=== PATIENT | female | born 1985 ===

== ENCOUNTER 2018-11-20 08:51 | Emergency (ER) | payer OTHER ==
[2018-11-20 08:58] VITALS: BP 125/84; PULSE 84; RESP 18; TEMP 98.3; O2SAT 99
--- NOTE | 2018-11-20 09:22 | C.PDOC ---
History Of Present Illness 33 y/o female presents to the ER complaining of runny nose, non-productive cough, and itchy throat which have been present for the past 3-4 days.Patient states that she tried OTC cough medications without relief. Patient reports that she has history of seasonal allergies. Denies having fever,chills, ear pain, CP, and SOB. Time Seen by Provider: 11/20/18 09:06 Chief Complaint (Nursing): Cough, Cold, Congestion History Per: Patient History/Exam Limitations: no limitations Onset/Duration Of Symptoms: Days Current Symptoms Are (Timing): Still Present Severity: Moderate Past Medical History Reviewed: Historical Data, Nursing Documentation, Vital Signs Vital Signs: Last Vital Signs Temp 98.3 F 11/20/18 08:54 Pulse 84 11/20/18 08:54 Resp 18 11/20/18 08:54 BP 125/84 11/20/18 08:54 Pulse Ox 99 11/20/18 08:54 - Medical History PMH: No Chronic Diseases - Social History Hx Alcohol Use: Yes Hx Substance Use: No - Immunization History Hx Tetanus Toxoid Vaccination: No Hx Influenza Vaccination: No Hx Pneumococcal Vaccination: No Review Of Systems Except As Marked, All Systems Reviewed And Found Negative. Constitutional: Negative for: Fever, Chills ENT: Positive for: Nose Discharge (runny nose), Other (itchy throat). Negative for: Ear Pain Cardiovascular: Negative for: Chest Pain Respiratory: Positive for: Cough (non-productive cough). Negative for: Shortness of Breath Physical Exam - Physical Exam Appears: Other (speaking in full sentences, coughing occasionally) Skin: Normal Color, Warm, Dry Head: Atraumatic, Normacephalic Eye(s): bilateral: Normal Inspection Ear(s): Bilateral: Normal Nose: Other (rhinorrhea) Oral Mucosa: Moist Throat: Normal, No Erythema, No Exudate Neck: Supple Chest: Symmetrical Cardiovascular: Rhythm Regular Respiratory: Normal Breath Sounds, No Rales, No Rhonchi, No Wheezing Neurological/Psych: Oriented x3, Normal Speech ED Course And Treatment O2 Sat by Pulse Oximetry: 99 (RA) Pulse Ox Interpretation: Normal Progress Note: Patient treated with Claritin PO. On re-evaluation, patient feels better. Patient has been discharged with prescriptions for Claritin and Nasonex. She has been instructed to follow up with PMD in 1-2 days. Disposition Counseled Patient/Family Regarding: Diagnosis, Need For Followup - Disposition Referrals: [facility] [Outside] Disposition: HOME/ ROUTINE Disposition Time: 09:30 Condition: STABLE Additional Instructions: FOLLOW UP WITH YOUR DOCTOR IN 1-2 DAYS USE MEDICATIONS DURING SPRING TIME RETURN TO ER IF SYMPTOMS WORSEN Prescriptions: Loratadine [Claritin] 10 mg PO DAILY PRN #30 tab PRN Reason: Itching / Pruritus Mometasone Furoate [Nasonex] 0.05 mg NS DAILY #1 bottle Instructions: Seasonal Allergies (DC) Forms: [employer] (Yemeni) Print Language: BULGARIAN - Clinical Impression Clinical Impression: Seasonal allergies - Scribe Statement The provider has reviewed the documentation as recorded by the Marilyn Good Provider Attestation: All medical record entries made by the Marilyn were at my direction and personally dictated by me. I have reviewed the chart and agree that the record accurately reflects my personal performance of the history, physical exam, medical decision making, and the department course for this patient. I have also personally directed, reviewed, and agree with the discharge instructions and disposition.
== END 2018-11-20 09:29 | disposition home or self-care (01) ==
LOC: C.ER 08:51
DX: J30.2 Other seasonal allergic rhinitis (principal)

== ENCOUNTER 2018-11-22 08:18 | Outpatient (CLI) | payer OTHER | END 2018-11-22 08:19 | disposition home or self-care (01) | LOC: C.LAB 08:18 | DX: E66.9 Obesity, unspecified (principal) ==

== ENCOUNTER 2018-12-08 10:47 | Outpatient (CLI) | payer OTHER | END 2018-12-08 10:48 | disposition home or self-care (01) | LOC: C.DIABED 10:47 ==

== ENCOUNTER 2018-12-11 08:27 | Outpatient (CLI) | payer OTHER | END 2018-12-11 08:28 | disposition home or self-care (01) | LOC: C.CARD 08:27 | DX: E66.9 Obesity, unspecified (principal) ==

== ENCOUNTER 2018-12-24 10:27 | Outpatient (CLI) | payer OTHER | END 2018-12-24 10:28 | disposition home or self-care (01) | LOC: C.DIABED 10:27 ==